=== PATIENT | male | born 1960 | race Caucasian/White ===

== ENCOUNTER 2017-08-26 10:23 | Inpatient (IN) ==
[~2017-08-26 10:23] MED LIST: ACETAMINOPHEN 325 MG TABLET PO PRN; MAGNESIUM SULF RIDER 2 GM in PREMIX 1 EACH IV PRN; MAGNESIUM SULF RIDER 4 GM in PREMIX 1 EACH IV PRN; ONDANSETRON 4 MG/2 ML VIAL IV PRN; ZALEPLON 5 MG CAPSULE PO PRN; diphenhydrAMINE CAP 25 MG CAPSULE PO PRN
[2017-08-26] MEDS: SOTALOL 80 MG TABLET PO SCH ×3 (12:06→21:39)
[2017-08-26] MEDS: SODIUM CHLORIDE 0.9% 1,000 ML IV SCH (12:06)
[2017-08-26 12:18] LABS: Basophils % 0.4 % (0.0-0.8); Eosinophils # 0.1 10*3/uL (0.0-0.87); Eosinophils % 0.5 % (0.00-10.9); Hemoglobin 14.1 GM/DL (14.0-18.0); Immature Granulocytes % 0.3 %; Immature Granulocytes Absolute 0.03 #; Lymphocytes # 2.5 10*3/uL (1.4-4.0); Lymphocytes % 25.3 % (21.2-54.2); Mean Corpuscular HGB Conc 34.4 GM/DL (32-36); Mean Corpuscular Hemoglobin 33 PG (27-34); Mean Corpuscular Volume 95.3 FL (87-102); Mean Platelet Volume 9.2 FL (9.6-12.0); Monocytes # 0.6 10*3/uL (0.11-0.8); Monocytes % 5.7 % (1.7-12.7); Neutrophils # 6.6 10*3/uL (1.4-7.4); Neutrophils % 67.8 % (38.7-73.9); Platelet Count 202 T/CUMM (130-400); Red Cell Distribution Width 13.6 % (9.3-17.3); White Blood Count 9.7 T/CUMM (4-12)
[2017-08-26 12:48] LABS: Albumin 3.6 G/DL (3.4-5.0); Bilirubin,Total 0.4 MG/DL (0.2-1.0); Calcium 8.4 MG/DL (8.5-10.1); Osmolality,Calculated 279.3 MOS/KG (273-304); Potassium 3.8 MMOL/L (3.5-5.1); Thyroid Stimulating Hormone 1.29 uIU/ml (0.358-3.74); Total Protein 6.4 G/DL (6.4-8.3)
[2017-08-26] MEDS: traZODone 50 MG TABLET PO SCH (21:39)
[2017-08-26] MEDS: CAPTOPRIL 12.5 MG TABLET PO SCH (21:39)
[2017-08-26] MEDS: buPROPion SR 100 MG TABLET PO SCH (21:39)
[2017-08-27 04:24] LABS: INR 1.1; PT Patient Result 11.3 SECS
[2017-08-27 04:33] LABS: Risk Ratio 3.98; VLDL CHOLESTEROL 36.4 MG/DL
[2017-08-27] MEDS: PHENYTOIN ER 100 MG CAPSULE PO SCH (08:52)
[2017-08-27] MEDS: CAPTOPRIL 12.5 MG TABLET PO SCH ×2 (08:52→21:37)
[2017-08-27] MEDS: buPROPion SR 100 MG TABLET PO SCH ×2 (08:52→21:37)
[2017-08-27] MEDS: SOTALOL 80 MG TABLET PO SCH ×2 (08:53→21:37)
[2017-08-27] MEDS: FUROSEMIDE 20 MG TABLET PO SCH (08:53)
[2017-08-27] MEDS: SIMVASTATIN 40 MG TABLET PO SCH (08:53)
[2017-08-27] MEDS: SODIUM CHLORIDE 0.9% 1,000 ML IV SCH (08:53)
[2017-08-27] MEDS: ASPIRIN CHEW 81 MG TABLET PO SCH (08:53)
[2017-08-27] MEDS ORDERED: WARFARIN 2.5 MG TABLET PO SCH (18:00)
[2017-08-27] MEDS ORDERED: WARFARIN 5 MG TABLET PO SCH (18:00)
[2017-08-27] MEDS: traZODone 50 MG TABLET PO SCH (21:37)
[2017-08-28 05:39] LABS: Basophils # 0.1 10*3/uL (0.0-0.2); Basophils % 0.5 % (0.0-0.8); Eosinophils # 0.1 10*3/uL (0.0-0.87); Eosinophils % 0.7 % (0.00-10.9); Hematocrit 38.8 VOL% (42.0-52.0); Hemoglobin 13.4 GM/DL (14.0-18.0); Immature Granulocytes % 0.4 %; Immature Granulocytes Absolute 0.04 #; Lymphocytes # 2.5 10*3/uL (1.4-4.0); Lymphocytes % 27.2 % (21.2-54.2); Mean Corpuscular HGB Conc 34.5 GM/DL (32-36); Mean Corpuscular Hemoglobin 32 PG (27-34); Mean Corpuscular Volume 93.7 FL (87-102); Mean Platelet Volume 9.3 FL (9.6-12.0); Monocytes # 0.7 10*3/uL (0.11-0.8); Monocytes % 7.5 % (1.7-12.7); Neutrophils # 5.8 10*3/uL (1.4-7.4); Neutrophils % 63.7 % (38.7-73.9); Platelet Count 182 T/CUMM (130-400); Red Blood Count 4.14 MC/CUMM (3.8-5.5); Red Cell Distribution Width 13.3 % (9.3-17.3); White Blood Count 9.2 T/CUMM (4-12)
[2017-08-28 05:44] LABS: PT Patient Result 10.9 SECS
[2017-08-28 05:59] LABS: Calcium 8.5 MG/DL (8.5-10.1); Osmolality,Calculated 281.1 MOS/KG (273-304); Potassium 3.7 MMOL/L (3.5-5.1)
[2017-08-28 08:05] VITALS: BP 129/77
[2017-08-28] MEDS: CAPTOPRIL 12.5 MG TABLET PO SCH (09:15)
[2017-08-28] MEDS: FUROSEMIDE 20 MG TABLET PO SCH (09:15)
[2017-08-28] MEDS: ASPIRIN CHEW 81 MG TABLET PO SCH (09:15)
[2017-08-28] MEDS: buPROPion SR 100 MG TABLET PO SCH (09:15)
[2017-08-28] MEDS: SIMVASTATIN 40 MG TABLET PO SCH (09:15)
[2017-08-28] MEDS: PHENYTOIN ER 100 MG CAPSULE PO SCH (09:15)
[2017-08-28] MEDS: SOTALOL 80 MG TABLET PO SCH (09:18)
== END 2017-08-28 10:51 | disposition home or self-care (01) | DRG 309 ==
LOC: N.TELES 10:23
PROVIDERS: ADMIT Internal Medicine Cardiovascular Disease; ATTEND Internal Medicine Cardiovascular Disease

== ENCOUNTER 2022-01-04 12:13 | Inpatient (IN) ==
[2022-01-04 12:55] LABS: Basophils # 0.1 10*3/uL (0.0-0.2); Basophils % 0.2 % (0.0-0.8); Eosinophils % 0.1 % (0.00-10.9); Hematocrit 31.1 VOL% (42.0-52.0); Hemoglobin 10.2 GM/DL (14.0-18.0); Immature Granulocytes % 2.5 %; Immature Granulocytes Absolute 0.63 #; Lymphocytes # 1.3 10*3/uL (1.4-4.0); Mean Corpuscular HGB Conc 32.8 GM/DL (32-36); Mean Corpuscular Volume 96.3 FL (87-102); Mean Platelet Volume 10.2 FL (9.6-12.0); Monocytes # 1.3 10*3/uL (0.11-0.8); Monocytes % 5.1 % (1.7-12.7); Neutrophils % 87.1 % (38.7-73.9); Platelet Count 269 T/CUMM (130-400); Red Blood Count 3.23 MC/CUMM (3.8-5.5); Red Cell Distribution Width 14.6 % (9.3-17.3)
[2022-01-04 13:07] LABS: INR 1.3; PT Patient Result 13.8 SECS (10.5-12.0); Partial Thromboplastin Time 40.7 SECS (23.7-32.9)
[2022-01-04 13:25] LABS: Albumin 1.8 G/DL (3.4-5.0); Bilirubin,Total 0.6 MG/DL (0.20-1.00); Calcium 8.1 MG/DL (8.5-10.1); Osmolality,Calculated 272.1 MOS/KG (273-304); Potassium 3.5 MMOL/L (3.5-5.1); Total Protein 6.3 G/DL (6.4-8.2)
[2022-01-04] MEDS ORDERED: LEVOFLOXACIN INJ 750 MG/150 ML PREMIX IV STA (15:07)
[2022-01-04] MEDS ORDERED: ASPIRIN EC 325 MG TABLET PO STA (15:08)
[2022-01-04] MEDS ORDERED: SODIUM CHLORIDE 0.9% 1,000 ML IV STA (15:20)
[2022-01-04] MEDS ORDERED: SODIUM CHLORIDE 0.9% 1,700 ML IV STA (15:40)
[2022-01-04 16:34] LABS: Anisocytosis Slight; Hypochromia Slight; Lymphocytes 4 % (20-55); Total Cells Counted 100
[2022-01-04 16:35] LABS: Elliptocytes Few; Platelet Estimate Normal
[2022-01-04] MEDS ORDERED: DOCUSATE SODIUM 100 MG CAPSULE PO PRN (16:55)
[2022-01-04] MEDS ORDERED: guaiFENesin/DM ER 600-30 MG TABLET PO PRN (16:55)
[2022-01-04] MEDS ORDERED: ALBUTEROL/IPRATROPIUM 3 ML NEB RESP TX STA (16:55)
[2022-01-04] MEDS ORDERED: ACETAMINOPHEN 325 MG TABLET PO PRN (16:55)
[2022-01-04] MEDS ORDERED: GLUCAGON 1 MG VIAL IM PRN (16:55)
[2022-01-04] MEDS ORDERED: ONDANSETRON 4 MG/2 ML VIAL IV PRN (16:55)
[2022-01-04] MEDS ORDERED: AZITHROMYCIN INJ 500 MG in SODIUM CHLORIDE 0.9% 250 ML IV SCH (17:00)
[2022-01-04] MEDS ORDERED: DEXTROSE 10% 250 ML BAG IV PRN (17:14)
[2022-01-04] MEDS ORDERED: ZALEPLON 5 MG CAPSULE PO PRN (19:14)
[2022-01-04] MEDS: LACTATED RINGERS 1,000 ML IV SCH (20:40)
[2022-01-04] MEDS: levETIRAcetam 500 MG TABLET PO SCH (20:40)
[2022-01-04] MEDS: GABAPENTIN 400 MG CAPSULE PO SCH (20:40)
[2022-01-04] MEDS: predniSONE 20 MG TABLET PO SCH (20:40)
[2022-01-04] MEDS: VENLAFAXINE 75 MG TABLET PO SCH (20:40)
[2022-01-04] MEDS: PIPERACILLIN/TAZOBACTAM 3,375 MG in SODIUM CHLORIDE 0.9% 100 ML IV SCH (20:41)
[2022-01-04] MEDS ORDERED: APIXABAN 2.5 MG TABLET PO SCH (21:00)
[2022-01-05] MEDS: PIPERACILLIN/TAZOBACTAM 3,375 MG in SODIUM CHLORIDE 0.9% 100 ML IV SCH ×3 (03:40→17:39)
[2022-01-05 04:50] LABS: Basophils % 0.2 % (0.0-0.8); Hematocrit 28.6 VOL% (42.0-52.0); Hemoglobin 8.8 GM/DL (14.0-18.0); Immature Granulocytes % 1.7 %; Immature Granulocytes Absolute 0.27 #; Lymphocytes # 0.6 10*3/uL (1.4-4.0); Lymphocytes % 3.5 % (21.2-54.2); Mean Corpuscular HGB Conc 30.8 GM/DL (32-36); Mean Corpuscular Volume 101.1 FL (87-102); Mean Platelet Volume 10.1 FL (9.6-12.0); Monocytes # 0.2 10*3/uL (0.11-0.8); Monocytes % 1.2 % (1.7-12.7); Neutrophils % 93.4 % (38.7-73.9); Platelet Count 205 T/CUMM (130-400); Red Blood Count 2.83 MC/CUMM (3.8-5.5); Red Cell Distribution Width 14.6 % (9.3-17.3); White Blood Count 16.1 T/CUMM (4-12)
[2022-01-05 05:10] LABS: Calcium 8.8 MG/DL (8.5-10.1); Osmolality,Calculated 278.7 MOS/KG (273-304); Potassium 4.3 MMOL/L (3.5-5.1); Risk Ratio 6.18
[2022-01-05 05:13] LABS: Lymphocytes 2 % (20-55); Platelet Estimate Adequate; Total Cells Counted 100
[2022-01-05] MEDS: LACTATED RINGERS 1,000 ML IV SCH ×2 (05:50→15:21)
[2022-01-05] MEDS: levETIRAcetam 500 MG TABLET PO SCH ×2 (09:24→20:49)
[2022-01-05] MEDS: SOTALOL 80 MG TABLET PO SCH ×2 (09:24→20:49)
[2022-01-05] MEDS: predniSONE 20 MG TABLET PO SCH (09:25)
[2022-01-05] MEDS: ASPIRIN CHEW 81 MG TABLET PO SCH (09:25)
[2022-01-05] MEDS: SIMVASTATIN 40 MG TABLET PO SCH (09:25)
[2022-01-05] MEDS: GABAPENTIN 400 MG CAPSULE PO SCH ×2 (09:25→20:49)
[2022-01-05] MEDS: BUDESONIDE 0.5 MG/2 ML NEB RESP TX SCH ×2 (09:31→19:58)
[2022-01-05] MEDS: VENLAFAXINE 75 MG TABLET PO SCH ×2 (09:35→20:48)
[2022-01-05 11:27] LABS: Basophils % 0.2 % (0.0-0.8); Hematocrit 27.9 VOL% (42.0-52.0); Hemoglobin 8.6 GM/DL (14.0-18.0); Immature Granulocytes % 1.5 %; Immature Granulocytes Absolute 0.19 #; Lymphocytes # 0.8 10*3/uL (1.4-4.0); Lymphocytes % 6.6 % (21.2-54.2); Mean Corpuscular HGB Conc 30.8 GM/DL (32-36); Mean Corpuscular Volume 101.5 FL (87-102); Mean Platelet Volume 10.2 FL (9.6-12.0); Monocytes # 0.4 10*3/uL (0.11-0.8); Monocytes % 2.9 % (1.7-12.7); Neutrophils % 88.8 % (38.7-73.9); Platelet Count 204 T/CUMM (130-400); Red Blood Count 2.75 MC/CUMM (3.8-5.5); Red Cell Distribution Width 14.7 % (9.3-17.3); White Blood Count 12.8 T/CUMM (4-12)
[2022-01-05 11:53] LABS: % Iron Saturation 21.4 % (18-50)
[2022-01-05 12:09] LABS: Folate 4.98 NG/ML (5.38-24.0); Vitamin B12 1045 PG/ML (211-911)
[2022-01-05 12:29] LABS: Sedimentation Rate-Westergren 125 MM/HR (0-20)
[2022-01-05] MEDS: ALBUTEROL/IPRATROPIUM 3 ML NEB RESP TX SCH ×2 (14:30→19:58)
[2022-01-05] MEDS ORDERED: ENOXAPARIN 30 MG/0.3 ML SYRINGE SUBCUT SCH (15:00)
[2022-01-06] MEDS: ALBUTEROL/IPRATROPIUM 3 ML NEB RESP TX SCH ×4 (01:06→19:01)
[2022-01-06] MEDS: PIPERACILLIN/TAZOBACTAM 3,375 MG in SODIUM CHLORIDE 0.9% 100 ML IV SCH ×3 (04:08→18:12)
[2022-01-06 05:21] LABS: Basophils % 0.1 % (0.0-0.8); Hematocrit 28.5 VOL% (42.0-52.0); Hemoglobin 8.8 GM/DL (14.0-18.0); Immature Granulocytes % 1.1 %; Lymphocytes # 1.5 10*3/uL (1.4-4.0); Mean Corpuscular HGB Conc 30.9 GM/DL (32-36); Mean Corpuscular Volume 101.8 FL (87-102); Monocytes # 0.5 10*3/uL (0.11-0.8); Neutrophils % 77.8 % (38.7-73.9); Platelet Count 200 T/CUMM (130-400); Red Cell Distribution Width 14.6 % (9.3-17.3); White Blood Count 9.3 T/CUMM (4-12)
[2022-01-06 05:31] LABS: Calcium 8.9 MG/DL (8.5-10.1); Osmolality,Calculated 279.4 MOS/KG (273-304); Potassium 4.4 MMOL/L (3.5-5.1)
[2022-01-06] MEDS: BUDESONIDE 0.5 MG/2 ML NEB RESP TX SCH ×2 (07:35→19:01)
[2022-01-06] MEDS ORDERED: MAGNESIUM HYDROXIDE SUSP 30 ML UDCUP PO ONE (09:15)
[2022-01-06] MEDS ORDERED: SIMETHICONE CHEW 125 MG TABLET PO PRN (09:33)
[2022-01-06] MEDS: DOCUSATE SODIUM 100 MG CAPSULE PO SCH ×2 (10:19→21:43)
[2022-01-06] MEDS: GABAPENTIN 400 MG CAPSULE PO SCH ×2 (10:23→21:42)
[2022-01-06] MEDS: predniSONE 20 MG TABLET PO SCH (10:23)
[2022-01-06] MEDS: VENLAFAXINE 75 MG TABLET PO SCH ×2 (10:23→21:42)
[2022-01-06] MEDS: ASPIRIN CHEW 81 MG TABLET PO SCH (10:23)
[2022-01-06] MEDS: SIMVASTATIN 40 MG TABLET PO SCH (10:24)
[2022-01-06] MEDS: SOTALOL 80 MG TABLET PO SCH ×2 (10:24→21:42)
[2022-01-06] MEDS: levETIRAcetam 500 MG TABLET PO SCH ×2 (10:24→21:42)
[2022-01-06] MEDS ORDERED: BISACODYL 5 MG TABLET PO ONE (13:28)
[2022-01-06] MEDS: LACTATED RINGERS 1,000 ML IV SCH (14:28)
[2022-01-06] MEDS: FUROSEMIDE 20 MG TABLET PO SCH (15:19)
[2022-01-06] MEDS: APIXABAN 2.5 MG TABLET PO SCH (21:43)
[2022-01-07] MEDS: ALBUTEROL/IPRATROPIUM 3 ML NEB RESP TX SCH ×2 (00:15→07:08)
[2022-01-07] MEDS: PIPERACILLIN/TAZOBACTAM 3,375 MG in SODIUM CHLORIDE 0.9% 100 ML IV SCH ×2 (04:03→10:00)
[2022-01-07 05:29] LABS: Eosinophils % 0.1 % (0.00-10.9); Hemoglobin 8.3 GM/DL (14.0-18.0); Immature Granulocytes % 0.9 %; Immature Granulocytes Absolute 0.06 #; Lymphocytes # 1.8 10*3/uL (1.4-4.0); Lymphocytes % 25.1 % (21.2-54.2); Mean Corpuscular HGB Conc 30.7 GM/DL (32-36); Mean Corpuscular Volume 101.9 FL (87-102); Mean Platelet Volume 10.2 FL (9.6-12.0); Monocytes # 0.6 10*3/uL (0.11-0.8); Monocytes % 7.9 % (1.7-12.7); Platelet Count 188 T/CUMM (130-400); Red Blood Count 2.65 MC/CUMM (3.8-5.5); Red Cell Distribution Width 14.6 % (9.3-17.3); White Blood Count 7.1 T/CUMM (4-12)
[2022-01-07 06:02] LABS: Calcium 8.8 MG/DL (8.5-10.1); Osmolality,Calculated 278.5 MOS/KG (273-304); Potassium 4.3 MMOL/L (3.5-5.1)
[2022-01-07 06:24] LABS: Lymphocytes 26 % (20-55); Total Cells Counted 100
[2022-01-07 06:26] LABS: Anisocytosis 1+; Polychromasia Slight
[2022-01-07 06:27] LABS: Platelet Estimate Adequate
[2022-01-07] MEDS: BUDESONIDE 0.5 MG/2 ML NEB RESP TX SCH (07:08)
[2022-01-07 08:28] VITALS: BP 133/87
[2022-01-07] MEDS: FUROSEMIDE 20 MG TABLET PO SCH (09:52)
[2022-01-07] MEDS: SOTALOL 80 MG TABLET PO SCH (09:52)
[2022-01-07] MEDS: ASPIRIN CHEW 81 MG TABLET PO SCH (09:52)
[2022-01-07] MEDS: predniSONE 20 MG TABLET PO SCH (09:52)
[2022-01-07] MEDS: APIXABAN 2.5 MG TABLET PO SCH (09:52)
[2022-01-07] MEDS: levETIRAcetam 500 MG TABLET PO SCH (09:53)
[2022-01-07] MEDS: DOCUSATE SODIUM 100 MG CAPSULE PO SCH (09:53)
[2022-01-07] MEDS: VENLAFAXINE 75 MG TABLET PO SCH (09:53)
[2022-01-07] MEDS: SIMVASTATIN 40 MG TABLET PO SCH (09:53)
[2022-01-07] MEDS: GABAPENTIN 400 MG CAPSULE PO SCH (09:53)
[2022-01-08 10:01] LABS: Hemoglobin A1 (Alkaline) 97.7 % (96.5-98.5); Hemoglobin A2 (Alkaline) 2.3 % (1.5-3.5)
== END 2022-01-07 14:00 | disposition home or self-care (01) | DRG 194 ==
LOC: N.ED 12:13 → N.EDINP 16:25 → N.TELEN 19:12
PROVIDERS: ADMIT Internal Medicine; ATTEND Internal Medicine

== ENCOUNTER 2022-02-21 05:59 | Observation (INO) ==
[2022-02-21] MEDS ORDERED: diphenhydrAMINE CAP 50 MG CAPSULE PO ONE (06:48)
[2022-02-21] MEDS ORDERED: DIAZEPAM 5 MG TABLET PO ONE (06:48)
[2022-02-21] MEDS ORDERED: POTASSIUM CHLORIDE RIDER 10 MEQ/100 ML PREMIX IV PRN (06:48)
[2022-02-21] MEDS ORDERED: MAGNESIUM SULF RIDER 2 GM/50 ML PREMIX IV PRN (06:48)
[2022-02-21] MEDS ORDERED: ASPIRIN 325 MG TABLET PO ONE (06:48)
[2022-02-21] MEDS ORDERED: ASPIRIN 325 MG TABLET ONE (06:59)
[2022-02-21] MEDS ORDERED: VERAPAMIL 5 MG/2 ML VIAL ONE (06:59)
[2022-02-21] MEDS ORDERED: NITROGLYCERIN DRIP 50 MG/250 ML BOTTLE IV ONE (06:59)
[2022-02-21] MEDS ORDERED: DIAZEPAM 5 MG TABLET ONE (06:59)
[2022-02-21] MEDS ORDERED: diphenhydrAMINE CAP 50 MG CAPSULE ONE (06:59)
[2022-02-21] MEDS: SODIUM CHLORIDE 0.9% 1,000 ML IV SCH ×2 (07:01→17:17)
[2022-02-21] MEDS ORDERED: HYDROmorphone 1 MG/1 ML SYRINGE ONE (07:29)
[2022-02-21] MEDS ORDERED: MIDAZOLAM 2 MG/2 ML VIAL ONE (07:30)
[2022-02-21] MEDS ORDERED: ENOXAPARIN 60 MG/0.6 ML SYRINGE ONE (07:45)
[2022-02-21] MEDS ORDERED: TIROFIBAN 5,000 MCG/100 ML PREMIX IV ONE (08:02)
[2022-02-21] MEDS ORDERED: TIROFIBAN 5,000 MCG/100 ML PREMIX IV SCH (08:09)
[2022-02-21] MEDS ORDERED: TICAGRELOR 90 MG TABLET ONE (09:05)
[2022-02-21] MEDS ORDERED: NITROGLYCERIN SL 0.4 MG TABLET SL PRN (09:09)
[2022-02-21] MEDS ORDERED: LEVALBUTEROL 1.25 MG/3 ML NEB RESP TX ONE ×2 (10:03→10:07)
[2022-02-21] MEDS ORDERED: ALBUTEROL/IPRATROPIUM 3 ML NEB RESP TX PRN (10:43)
[2022-02-21] MEDS ORDERED: AMINOPHYLLINE 125 MG in SODIUM CHLORIDE 0.9% 100 ML IV ONE (11:45)
[2022-02-21] MEDS ORDERED: methylPREDNISolone SOD SUC 125 MG/2 ML VIAL IV ONE (11:46)
[2022-02-21] MEDS ORDERED: methylPREDNISolone SOD SUC 125 MG/2 ML VIAL ONE (12:05)
[2022-02-21] MEDS: AMINOPHYLLINE 500 MG in SODIUM CHLORIDE 0.9% 480 ML IV SCH (12:38)
[2022-02-21] MEDS ORDERED: ALBUTEROL 2.5 MG/3 ML NEB RESP TX PRN (14:49)
[2022-02-21] MEDS: ALBUTEROL/IPRATROPIUM 3 ML NEB RESP TX SCH (19:45)
[2022-02-21] MEDS ORDERED: TICAGRELOR 90 MG TABLET PO SCH (21:00)
[2022-02-21] MEDS: BUDESONIDE/FORMOTEROL 80-4.5 INHALER 6.9 GM INH SCH (21:33)
[2022-02-21] MEDS: methylPREDNISolone 4 MG TABLET PO SCH (21:37)
[2022-02-21] MEDS: GABAPENTIN 400 MG CAPSULE PO SCH (21:46)
[2022-02-21] MEDS: levETIRAcetam 500 MG TABLET PO SCH (21:46)
[2022-02-21] MEDS: SOTALOL 80 MG TABLET PO SCH (21:46)
[2022-02-22] MEDS: ALBUTEROL/IPRATROPIUM 3 ML NEB RESP TX SCH ×2 (01:18→07:00)
[2022-02-22 07:37] LABS: Basophils % 0.1 % (0.0-0.8); Hemoglobin 11.3 GM/DL (14.0-18.0); Immature Granulocytes % 0.7 %; Immature Granulocytes Absolute 0.05 #; Lymphocytes # 0.8 10*3/uL (1.4-4.0); Lymphocytes % 11.4 % (21.2-54.2); Mean Corpuscular HGB Conc 32.3 GM/DL (32-36); Mean Corpuscular Volume 101.2 FL (87-102); Mean Platelet Volume 9.8 FL (9.6-12.0); Monocytes # 0.3 10*3/uL (0.11-0.8); Monocytes % 4.5 % (1.7-12.7); Neutrophils % 83.3 % (38.7-73.9); Platelet Count 126 T/CUMM (130-400); Red Blood Count 3.46 MC/CUMM (3.8-5.5); Red Cell Distribution Width 15.9 % (9.3-17.3); White Blood Count 6.7 T/CUMM (4-12)
[2022-02-22 07:55] LABS: Calcium 9.3 MG/DL (8.5-10.1); Osmolality,Calculated 271.8 MOS/KG (273-304); Potassium 4.5 MMOL/L (3.5-5.1)
[2022-02-22 08:18] VITALS: BP 141/85
[2022-02-22] MEDS ORDERED: FUROSEMIDE 20 MG TABLET PO SCH (09:00)
[2022-02-22] MEDS ORDERED: TAMSULOSIN 0.4 MG CAPSULE PO SCH (09:00)
[2022-02-22] MEDS ORDERED: CLOPIDOGREL 75 MG TABLET PO SCH (09:00)
[2022-02-22] MEDS ORDERED: CYANOCOBALAMIN 500 MCG TABLET PO SCH (09:00)
[2022-02-22] MEDS ORDERED: ASPIRIN CHEW 81 MG TABLET PO SCH (09:00)
[2022-02-22] MEDS ORDERED: FERROUS SULFATE 325 MG TABLET PO SCH (09:00)
[2022-02-22] MEDS ORDERED: VENLAFAXINE 75 MG TABLET PO SCH (09:00)
[2022-02-22] MEDS: SODIUM CHLORIDE 0.9% 1,000 ML IV SCH (10:59)
[2022-02-22] MEDS: SOTALOL 80 MG TABLET PO SCH (10:59)
[2022-02-22] MEDS: levETIRAcetam 500 MG TABLET PO SCH (11:00)
[2022-02-22] MEDS: GABAPENTIN 400 MG CAPSULE PO SCH (11:00)
[2022-02-22] MEDS: BUDESONIDE/FORMOTEROL 80-4.5 INHALER 6.9 GM INH SCH (11:02)
[2022-02-22] MEDS: methylPREDNISolone 4 MG TABLET PO SCH (11:14)
[2022-02-22] MEDS: AMINOPHYLLINE 500 MG in SODIUM CHLORIDE 0.9% 480 ML IV SCH (11:14)
[2022-02-22] MEDS ORDERED: ROSUVASTATIN 20 MG TABLET PO SCH (21:00)
== END 2022-02-22 12:08 | disposition home or self-care (01) ==
LOC: N.2W 05:59 → N.CL 05:59 → N.2W 14:40
PROVIDERS: ADMIT Internal Medicine Cardiovascular Disease; ATTEND Internal Medicine Cardiovascular Disease
PROC: CLCCHCL (ICD-10-PCS; 2022-02-21 07:45)